=== PATIENT | female | born 1985 | race Caucasian/White ===

== ENCOUNTER 2017-02-23 04:45 | Emergency (ER) | payer OTHER ==
[2017-02-23 04:51] VITALS: BP 117/76; PULSE 84; TEMP 97.7; BMI 28.3
--- NOTE | 2017-02-23 04:52 | PDOC ---
History of Present Illness - General Chief Complaint: Eye Problem Stated Complaint: R EYE DISCOMFORT Time Seen by Provider: 02/23/17 04:48 - History of Present Illness Initial Comments: This 31-year-old woman with a history of DVT but no other significant past medical issues presents with 2 day history of right eye redness/pain. Prior to onset of the eye discomfort, patient had 1 day history of nausea/vomiting/ diarrhea. These symptoms have resolved. No clear history of foreign body falling or flying into the eye. Patient had noted some crusting of the eyelashes. 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 Patient does not use contact lenses and denies vision changes. Medications Warfarin Past History - Past Medical History Allergies/Adverse Reactions: Allergies Allergy/AdvReac Type Severity Reaction Status Date / Time No Known Allergies Allergy Unverified 02/23/17 05:19 Home Medications: Ambulatory Orders Warfarin Sodium [Coumadin] 7.5 mg PO DAILY 02/23/17 Other medical history: BLOOD CLOT - Suicide/Smoking/Psychosocial Hx Smoking History: Unknown if ever smoked Have you smoked in the past 12 months: No Number of Cigarettes Smoked Daily: 0 Information on smoking cessation initiated: No Hx Alcohol Use: No Drug/Substance Use Hx: No Substance Use Type: None Review of Systems - Review of Systems Able to Perform ROS?: Yes Comments:: 12 point review of systems is negative except for what is noted in the history of present illness *Physical Exam - Vital Signs Last Vital Signs Temp Pulse Resp BP Pulse Ox 97.7 F 84 14 117/76 99 02/23/17 04:48 02/23/17 04:48 02/23/17 04:48 02/23/17 04:48 02/23/17 04:48 - Physical Exam Comments: GENERAL: Adult female, in mild distress secondary to right eye discomfort HEAD: Normal with no signs of trauma. EYES: Right sidemild upper and lower eyelid edema; no crusting or edema of eyelash border Moderate conjunctival erythema; no purulent discharge ; marked watery discharge Anterior chamber normal; no limbal flush; pupil 3 mm round and briskly reactive (equal to the left side) Left sideconjunctiva/anterior chamber/pupil all normal ENT: Ears normal, nares patent, oropharynx clear without exudates. Dry mucous membranes. NECK: Normal range of motion, supple without lymphadenopathy, JVD, or masses. LUNGS: Breath sounds equal, clear to auscultation bilaterally. No wheezes, and no crackles. HEART:Regular rate and rhythm, normal S1 and S2 without murmur, rub or gallop. ABDOMEN:.normal bowel sounds No guarding,tenderness or rebound.No masses No distention. EXTREMITIES: Normal range of motion, no edema. No clubbing or cyanosis. No erythema, or tenderness. NEUROLOGICAL: Cranial nerves II through XII grossly intact. Normal speech. No focal neurological deficits. MUSCULOSKELETAL: Back non-tender to palpation, no CVA tenderness SKIN: Warm, Dry, normal turgor, no rashes or lesions noted. 2 drops of 0.1% tetracaine ophthalmic solution placed in the right eye for local anesthesia. Fluorescein staining performed: No evidence of corneal abrasion or ulceration Medical Decision Making - Medical Decision Making Clinical presentation most consistent with acute conjunctivitis. Although viral etiology most likely, especially in light of antecedent gastroenteritis symptoms and lack of purulent discharge, we will start ciprofloxacin ophthalmic solution to prevent secondary bacterial conjunctivitis Patient does not currently have an bottle hop (saw one "years ago"); Dr. Savanna Giles on-call for ophthalmology. Referral information for Dr Giles will be given to the patient for follow-up within the next 5-7 days. If she has worsening of her pain, more prominent redness of the eye or change in vision , she should return to the emergency room *DC/Admit/Observation/Transfer Diagnosis at time of Disposition: Acute conjunctivitis of right eye Qualifiers: Acute conjunctivitis type: viral Qualified Code(s): B30.9 - Viral conjunctivitis, unspecified - Discharge Dispostion Disposition: HOME Condition at time of disposition: Stable - Referrals Referrals: Savanna Giles MD [Staff Physician] - - Patient Instructions Printed Discharge Instructions: Conjunctivitis Additional Instructions: Ciprofloxacin eyedrops, 2 drops in right eye every 4 hours while awake for the first 2 days, then twice a day for the next 5 days Cool compresses as needed to right eye Use own towels/washcloths; wash hands after contact with your eyes Follow-up with bottle hop (Dr. Giles) within 1 week, especially if symptoms persist Return to ER if you have severe pain/redness/change in vision
[2017-02-23] MEDS ORDERED: FLUORESCEIN NA 1 EA STRIP ONE (05:04)
[2017-02-23] MEDS ORDERED: TETRACAINE 0.5% OPHTH SOLN 2 ML BOTTLE ONE (05:04)
[2017-02-23] MEDS ORDERED: CIPROFLOXACIN HCL 0.3% OPHTH 2.5ML BOTTLE ONE (05:12)
== END 2017-02-23 05:22 | disposition home or self-care (01) ==
LOC: FER 04:45
DX: B30.9 Viral conjunctivitis, unspecified (principal)
CPT/HCPCS: 99282-25